=== PATIENT | female | born 1940 | race Caucasian/White ===

== ENCOUNTER 2018-05-29 15:02 | Emergency (ER) | payer MEDICARE, OTHER ==
[~2018-05-29] VITALS: Ht 157.5 cm; Wt 82.0 kg
[~2018-05-29 15:02] MED LIST: ALEN70TA48 PO; ASPI-1071 PO; FURO-149 PO; IPRA3AMP9 INH; IRBE150T51 PO; MONT10TA24 PO; OMEP20TA23 PO; POTA8CAP9 PO; XAL0.005OS EACHEYE
[2018-05-29 15:04] VITALS: BP 188/48
[2018-05-29 15:40] LABS: BASOPHILS % (AUTO) 0.3 % (0-1); EOSINOPHILS # (AUTO) 0.3 X10'3 (0-0.9); EOSINOPHILS % (AUTO) 3.9 % (0-6); HEMATOCRIT 34.3 % (35.0-45.0); HEMOGLOBIN 11.5 g/dl (12.0-16.0); LYMPHOCYTES # (AUTO) 1.5 X10'3 (1.1-4.8); LYMPHOCYTES % (AUTO) 18.4 % (21-51); MEAN CORPUSCULAR HEMOGLOBIN 29.6 PG (27.0-31.0); MEAN CORPUSCULAR HGB CONC 33.7 % (33.0-36.5); MEAN PLATELET VOLUME 9.1 FL (7.4-10.4); MONOCYTES # (AUTO) 0.9 X10'3 (0-0.9); MONOCYTES % (AUTO) 11.6 % (2-12); NEUTROPHILS # (AUTO) 5.3 X10'3 (1.8-7.7); NEUTROPHILS % (AUTO) 65.8 % (42-75); PLATELET COUNT 339 X10'3 (140-440); RED BLOOD COUNT 3.89 X10'6 (4.20-5.60); RED CELL DISTRIBUTION WIDTH 13.9 % (11.5-14.5)
[2018-05-29 15:44] LABS: CLARITY,URINE CLEAR (Clear); COLOR,URINE YELLOW (Yellow); GLUCOSE, URINE NEGATIVE (Neg); KETONES,URINE NEGATIVE (Neg); LEUKOCYTE ESTERASE ,URINE NEGATIVE (Neg); NITRITES, URINE NEGATIVE (Neg); OCCULT BLOOD,URINE NEGATIVE (Neg); PH,URINE 5.5 (4.8-8.0); PROTEIN,URINE NEGATIVE (Neg); UROBILINOGEN,URINE 0.2 E.U/dL (0.2-1.0)
[2018-05-29 15:50] LABS: UA COLLECTION TYPE CLN CATCH MIDSTREAM
[2018-05-29 15:56] LABS: ALANINE AMINOTRANSFERASE 36 U/L (12-78); ALBUMIN 3.1 G/DL (3.4-5.0); ALBUMIN/GLOBULIN RATIO 0.6 (1.1-1.5); ALKALINE PHOSPHATASE 71 IU/L (46-116); ANION GAP 11 (8-16); ASPARTATE AMINO TRANSFERASE 25 U/L (10-37); BILIRUBIN,TOTAL 0.2 MG/DL (0.1-1.0); BLOOD UREA NITROGEN 38 MG/DL (7-18); BUN/CREATININE RATIO 27.9 (6.6-38.0); CALCIUM 9.4 MG/DL (8.5-10.1); CHLORIDE 101 MMOL/L (99-107); CREATININE 1.36 MG/DL (0.40-0.90); GLUCOSE 101 MG/DL (70-104); SODIUM 136 MMOL/L (135-145); TOTAL CARBON DIOXIDE 23.7 MMOL/L (24-32); TOTAL PROTEIN 7.9 G/DL (6.4-8.2); eGFR 38 ML/MIN
[2018-05-29 15:58] LABS: POTASSIUM 4.4 MMOL/L (3.5-5.1)
[2018-05-29] MEDS ORDERED: ONDA4TAB9 PO (16:16)
== END 2018-05-29 17:03 | disposition home or self-care (01) ==
LOC: ER 15:03
DX: I12.9 Hypertensive chronic kidney disease with stage 1 through stage 4 chronic kidney disease, or unspecified chronic kidney disease (principal); N18.9 Chronic kidney disease, unspecified; D64.9 Anemia, unspecified; E78.00 Pure hypercholesterolemia, unspecified; J45.909 Unspecified asthma, uncomplicated; M19.90 Unspecified osteoarthritis, unspecified site; Z86.73 Personal history of transient ischemic attack (TIA), and cerebral infarction without residual deficits; Z90.710 Acquired absence of both cervix and uterus; Z88.8 Allergy status to other drugs, medicaments and biological substances; Z88.6 Allergy status to analgesic agent; Z79.82 Long term (current) use of aspirin; Z79.899 Other long term (current) drug therapy
CPT/HCPCS: 36415; 71045; 80053; 81003; 83605; 85025; 87040; 99285

== ENCOUNTER 2018-11-20 15:13 | Emergency (ER) | payer MEDICARE, OTHER ==
[~2018-11-20] VITALS: Ht 157.5 cm; Wt 85.5 kg
[2018-11-20 16:02] VITALS: BP 191/53
== END 2018-11-20 18:16 | disposition home or self-care (01) ==
LOC: ER 15:14
DX: J02.9 Acute pharyngitis, unspecified (principal); J45.909 Unspecified asthma, uncomplicated; I10 Essential (primary) hypertension; M19.90 Unspecified osteoarthritis, unspecified site; E78.00 Pure hypercholesterolemia, unspecified; Z86.73 Personal history of transient ischemic attack (TIA), and cerebral infarction without residual deficits; Z90.710 Acquired absence of both cervix and uterus; Z79.899 Other long term (current) drug therapy; Z79.82 Long term (current) use of aspirin
CPT/HCPCS: 99281

== ENCOUNTER 2019-11-30 11:57 | Outpatient (CLI) | payer MEDICARE, OTHER ==
[~2019-11-30 11:57] MED LIST changes: -ALEN70TA48 PO; +ALEN70TA60 PO; +POTA8CAP20 PO; -POTA8CAP9 PO
[2019-11-30 13:24] LABS: BASOPHILS # (AUTO) 0.1 X10'3 (0-0.2); BASOPHILS % (AUTO) 0.6 % (0-1); EOSINOPHILS # (AUTO) 0.1 X10'3 (0-0.9); EOSINOPHILS % (AUTO) 0.9 % (0-6); HEMATOCRIT 28.6 % (35.0-45.0); HEMOGLOBIN 9.5 g/dl (12.0-16.0); LYMPHOCYTES # (AUTO) 1.1 X10'3 (1.1-4.8); LYMPHOCYTES % (AUTO) 7.1 % (21-51); MEAN CORPUSCULAR HGB CONC 33.2 g/dL (33.0-36.5); MEAN CORPUSCULAR VOLUME 87.3 FL (78-98); MEAN PLATELET VOLUME 9.4 FL (7.4-10.4); MONOCYTES # (AUTO) 1.1 X10'3 (0-0.9); NEUTROPHILS # (AUTO) 13.4 X10'3 (1.8-7.7); NEUTROPHILS % (AUTO) 84.4 % (42-75); PLATELET COUNT 369 X10'3 (140-440); RED BLOOD COUNT 3.27 X10'6 (4.20-5.60); RED CELL DISTRIBUTION WIDTH 14.1 % (11.5-14.5); WHITE BLOOD COUNT 15.8 X10'3 (4.5-11.0)
[2019-11-30 13:58] LABS: ALANINE AMINOTRANSFERASE 16 U/L (12-78); ALBUMIN 2.6 G/DL (3.4-5.0); ALBUMIN/GLOBULIN RATIO 0.5 (1.1-1.5); ALKALINE PHOSPHATASE 60 IU/L (46-116); ANION GAP 10 (8-16); ASPARTATE AMINO TRANSFERASE 11 U/L (10-37); BILIRUBIN,TOTAL 0.3 MG/DL (0.1-1.0); BLOOD UREA NITROGEN 39 MG/DL (7-18); BUN/CREATININE RATIO 28.1 (6.6-38.0); CALCIUM 9.1 MG/DL (8.5-10.1); CHLORIDE 101 MMOL/L (99-107); CHOL/HDL RATIO 3.1 (0.00-4.99); CHOLESTEROL 139 MG/DL (0-200); CREATININE 1.39 MG/DL (0.40-0.90); GLUCOSE 99 MG/DL (70-104); HDL CHOLESTEROL 45 MG/DL (35-60); LDL CHOLESTEROL 79 MG/DL (50-100); MAGNESIUM 1.9 MG/DL (1.5-2.4); POTASSIUM 4.2 MMOL/L (3.5-5.1); SODIUM 136 MMOL/L (135-145); TOTAL CARBON DIOXIDE 24.8 MMOL/L (24-32); TOTAL PROTEIN 7.6 G/DL (6.4-8.2); TRIGLYCERIDES 82 MG/DL (20-135); eGFR 36 ML/MIN
[2019-12-02 08:10] LABS: VITAMIN D, 25-HYDROXY 27.8 ng/mL (30.0-100.0)
[2019-12-03] MEDS ORDERED: BECL7.3A INH (16:45)
[2019-12-03] MEDS ORDERED: COLC0.6T69 PO (16:45)
[2019-12-03] MEDS ORDERED: FURO-149 PO (16:45)
== END 2019-11-30 23:59 | disposition home or self-care (01) ==
LOC: LAB 11:57
PROVIDERS: ATTEND Internal Medicine
DX: I35.0 Nonrheumatic aortic (valve) stenosis (principal); R53.83 Other fatigue; R10.31 Right lower quadrant pain; R06.02 Shortness of breath; R10.819 Abdominal tenderness, unspecified site; Z79.899 Other long term (current) drug therapy; Z12.11 Encounter for screening for malignant neoplasm of colon
CPT/HCPCS: 36415; 80053; 80061; 82306; 82607; 83735; 83880; 84439; 84443; 84550; 85025; 85651; 87040

== ENCOUNTER 2019-12-15 17:35 | Emergency (ER) | payer MEDICARE, MEDICAID, OTHER ==
[~2019-12-15] VITALS: Ht 157.5 cm; Wt 90.0 kg
[~2019-12-15 17:35] MED LIST changes: -ALEN70TA60 PO; -ASPI-1071 PO; +BECL7.3A INH; +CIPR-230 PO; +COLC0.6T69 PO; +HYDR-4353 PO; -IPRA3AMP9 INH; -OMEP20TA23 PO
[2019-12-15] MEDS ORDERED: ipratropium/albuterol 3ml nebule NEB ONE (18:45)
--- NOTE | 2019-12-15 19:14 | NUR ---
FC PLACED WITH THE ASSISTANCE OF EVER RODARTE.
[2019-12-15 19:24] VITALS: BP 144/51
== END 2019-12-15 19:29 | disposition home or self-care (01) ==
LOC: ER 17:36
DX: T83.038A Leakage of other urinary catheter, initial encounter (principal); R05 Cough; E78.00 Pure hypercholesterolemia, unspecified; I10 Essential (primary) hypertension; J45.909 Unspecified asthma, uncomplicated; M19.90 Unspecified osteoarthritis, unspecified site; Z86.73 Personal history of transient ischemic attack (TIA), and cerebral infarction without residual deficits; Z90.710 Acquired absence of both cervix and uterus; Z88.8 Allergy status to other drugs, medicaments and biological substances; Z88.6 Allergy status to analgesic agent; Z79.899 Other long term (current) drug therapy; Y92.89 Other specified places as the place of occurrence of the external cause
CPT/HCPCS: 51702; 94640; 94760; 99284

== ENCOUNTER 2019-12-26 12:15 | Outpatient (CLI) | payer MEDICARE, MEDICAID, OTHER ==
[~2019-12-26 12:15] MED LIST changes: -MONT10TA24 PO; +MONT10TA26 PO
[2019-12-26 13:34] LABS: BASOPHILS % (AUTO) 0.2 % (0-1); EOSINOPHILS # (AUTO) 0.2 X10'3 (0-0.9); EOSINOPHILS % (AUTO) 1.8 % (0-6); HEMATOCRIT 29.5 % (35.0-45.0); HEMOGLOBIN 9.9 g/dl (12.0-16.0); LYMPHOCYTES # (AUTO) 1.2 X10'3 (1.1-4.8); LYMPHOCYTES % (AUTO) 11.2 % (21-51); MEAN CORPUSCULAR HEMOGLOBIN 28.7 PG (27.0-31.0); MEAN CORPUSCULAR HGB CONC 33.6 g/dL (33.0-36.5); MEAN CORPUSCULAR VOLUME 85.4 FL (78-98); MEAN PLATELET VOLUME 9.1 FL (7.4-10.4); MONOCYTES # (AUTO) 0.9 X10'3 (0-0.9); MONOCYTES % (AUTO) 8.6 % (2-12); NEUTROPHILS # (AUTO) 8.5 X10'3 (1.8-7.7); NEUTROPHILS % (AUTO) 78.2 % (42-75); PLATELET COUNT 496 X10'3 (140-440); RED BLOOD COUNT 3.45 X10'6 (4.20-5.60); RED CELL DISTRIBUTION WIDTH 14.8 % (11.5-14.5); WHITE BLOOD COUNT 10.9 X10'3 (4.5-11.0)
[2019-12-26 13:38] LABS: % IRON SATURATION 10 % (11-46); IRON 20 UG/DL (49-151); TOTAL IRON BINDING CAPACITY 201 UG/DL (259-388)
[2019-12-26 13:58] LABS: ALANINE AMINOTRANSFERASE 16 U/L (12-78); ALBUMIN/GLOBULIN RATIO 0.7 (1.1-1.5); ALKALINE PHOSPHATASE 59 IU/L (46-116); ANION GAP 5 (8-16); ASPARTATE AMINO TRANSFERASE 12 U/L (10-37); BILIRUBIN,TOTAL 0.5 MG/DL (0.1-1.0); BLOOD UREA NITROGEN 52 MG/DL (7-18); BUN/CREATININE RATIO 34.9 (6.6-38.0); CALCIUM 9.3 MG/DL (8.5-10.1); CHLORIDE 96 MMOL/L (99-107); CREATININE 1.49 MG/DL (0.40-0.90); FERRITIN 259 NG/ML (8-252); GLUCOSE 109 MG/DL (70-104); POTASSIUM 4.4 MMOL/L (3.5-5.1); SODIUM 134 MMOL/L (135-145); TOTAL CARBON DIOXIDE 32.7 MMOL/L (24-32); TOTAL PROTEIN 7.5 G/DL (6.4-8.2); eGFR 34 ML/MIN
== END 2019-12-26 23:59 | disposition home or self-care (01) ==
LOC: LAB 12:15
PROVIDERS: ATTEND Internal Medicine
DX: I11.0 Hypertensive heart disease with heart failure (principal); I50.9 Heart failure, unspecified; R53.1 Weakness; Z79.899 Other long term (current) drug therapy
CPT/HCPCS: 36415; 80053; 82728; 83540; 83550; 83880; 84439; 84443; 84550; 85025; 85651

== ENCOUNTER 2020-01-31 15:03 | Inpatient (IN) | payer MEDICARE, OTHER ==
[~2020-01-31] VITALS: Ht 157.5 cm; Wt 78.4 kg
[~2020-01-31 15:03] MED LIST changes: +APIX5TAB3 PO; +ATOR20TA66 PO; -CIPR-230 PO; -FURO-149 PO; +FURO40TA4 PO; -HYDR-4353 PO
--- NOTE | 2020-01-31 15:42 | NUR ---
discussed plan of care with Shanel SAMAYOA, ordered stroke protocol
[2020-01-31] MEDS ORDERED: normal saline 1000ML IV soln IV ONE (16:00)
[2020-01-31 16:14] LABS: BASOPHILS % (AUTO) 0.3 % (0-1); EOSINOPHILS # (AUTO) 0.3 X10'3 (0-0.9); EOSINOPHILS % (AUTO) 2.2 % (0-6); HEMATOCRIT 29.7 % (35.0-45.0); HEMOGLOBIN 9.8 g/dl (12.0-16.0); LYMPHOCYTES # (AUTO) 2.5 X10'3 (1.1-4.8); LYMPHOCYTES % (AUTO) 20.2 % (21-51); MEAN CORPUSCULAR HEMOGLOBIN 27.7 PG (27.0-31.0); MEAN CORPUSCULAR VOLUME 84.1 FL (78-98); MEAN PLATELET VOLUME 9.1 FL (7.4-10.4); MONOCYTES # (AUTO) 0.9 X10'3 (0-0.9); MONOCYTES % (AUTO) 7.1 % (2-12); NEUTROPHILS # (AUTO) 8.7 X10'3 (1.8-7.7); NEUTROPHILS % (AUTO) 70.2 % (42-75); PLATELET COUNT 319 X10'3 (140-440); RED BLOOD COUNT 3.53 X10'6 (4.20-5.60); RED CELL DISTRIBUTION WIDTH 15.5 % (11.5-14.5); WHITE BLOOD COUNT 12.4 X10'3 (4.5-11.0)
[2020-01-31 16:27] LABS: PARTIAL THROMBOPLASTIN TIME 31 SECONDS (22-32)
[2020-01-31 16:40] LABS: ALANINE AMINOTRANSFERASE 19 U/L (12-78); ALBUMIN 3.2 G/DL (3.4-5.0); ALBUMIN/GLOBULIN RATIO 0.7 (1.1-1.5); ALKALINE PHOSPHATASE 66 IU/L (46-116); ANION GAP 15 (8-16); ASPARTATE AMINO TRANSFERASE 18 U/L (10-37); BILIRUBIN,TOTAL 0.4 MG/DL (0.1-1.0); BLOOD UREA NITROGEN 32 MG/DL (7-18); BUN/CREATININE RATIO 21.3 (6.6-38.0); CALCIUM 9.2 MG/DL (8.5-10.1); CHLORIDE 97 MMOL/L (99-107); CREATINE KINASE 57 U/L (26-192); ETHANOL < 0.010 GM/DL (0.0-0.010); GLUCOSE 110 MG/DL (70-104); POTASSIUM 4.2 MMOL/L (3.5-5.1); SODIUM 132 MMOL/L (135-145); TOTAL CARBON DIOXIDE 20.4 MMOL/L (24-32); TOTAL PROTEIN 7.7 G/DL (6.4-8.2); TROPONIN I < 0.04 NG/ML (0.0-0.05); eGFR 33 ML/MIN
[2020-01-31] MEDS ORDERED: vancomycin/NS 1 GM ADD-VANTAGE 250 ML IV ONE (16:40)
[2020-01-31] MEDS ORDERED: piperacillin/tazo 3.375gm/50ml 50 ML IV ONE (16:40)
[2020-01-31 17:24] LABS: CLARITY,URINE CLEAR (Clear); COLOR,URINE YELLOW (Yellow); GLUCOSE, URINE NEGATIVE (Neg); KETONES,URINE NEGATIVE (Neg); LEUKOCYTE ESTERASE ,URINE NEGATIVE (Neg); NITRITES, URINE NEGATIVE (Neg); OCCULT BLOOD,URINE NEGATIVE (Neg); PH,URINE 6.5 (4.8-8.0); PROTEIN,URINE 30 mg/dl (Neg); UROBILINOGEN,URINE 0.2 E.U/dL (0.2-1.0)
[2020-01-31 17:26] LABS: UA COLLECTION TYPE FOLEY CATH
[2020-01-31 17:30] LABS: URINE AMPHETAMINE SCREEN NEGATIVE (Neg); URINE BARBITUATE SCREEN NEGATIVE (Neg); URINE BENZODIAZEPINES SCREEN NEGATIVE (Neg); URINE CANNABINOID SCREEN NEGATIVE (Neg); URINE COCAINE SCREEN NEGATIVE (Neg); URINE METHADONE SCREEN NEGATIVE (Neg); URINE OPIATE SCREEN NEGATIVE (Neg); URINE PHENCYCLIDINE SCREEN NEGATIVE (Neg)
[2020-01-31 17:33] LABS: WBC,URINE 0-4 /HPF (0-4)
[2020-01-31 17:34] LABS: BACTERIA,URINE NONE SEEN /HPF (Neg); MUCUS STRANDS FEW /LPF (Neg); RBC,URINE 0-2 /HPF (0-2); RENAL CELLS, URINE FEW /HPF; SQUAMOUS EPITHELIAL CELL,UR FEW /LPF (FEW)
[2020-01-31 17:35] LABS: HYALINE CASTS 0-3 /LPF (NEGATIVE)
[2020-01-31] MEDS ORDERED: ondansetron/PF 4mg/2ml inj IV ONE (17:45)
[2020-01-31] MEDS ORDERED: ATOR40TA72 PO (17:52)
[2020-01-31] MEDS ORDERED: FLUT16SP26 (17:52)
[2020-01-31 18:00] LABS: ABG BASE EXCESS -3.5 mmol/L (-2.0-3.0); ABG HCO3 20.6 mmol/L (22.0-26.0); ABG OXYGEN SATURATION 95.6 % (95-98); ABG PCO2 (T) 33.1 mmHg (35.0-45.0); ABG PH (T) 7.412 (7.350-7.450); ABG PO2 (T) 83.9 mmHg (83-108); ALLEN'S TEST POSITIVE; FCOHb 0.3 % (0.5-1.5); FMetHb 0.3 % (0.3-1.12); TOTAL HEMOGLOBIN 8.8 G/dl (12.0-16.0)
[2020-01-31] MEDS ORDERED: potassium CL 10mEq/100ml bag 100 ML IV PRN ×2 (20:15)
[2020-01-31] MEDS ORDERED: mag hydrox/Alum hydrox/simeth 30ml oral suspension PO PRN (20:15)
[2020-01-31] MEDS ORDERED: magnesium hydroxide 30ml (MOM) UD suspension PO PRN (20:15)
[2020-01-31] MEDS ORDERED: acetaminophen 325mg tablet PO PRN (20:15)
[2020-01-31] MEDS ORDERED: colchicine 0.6mg tablet PO PRN (20:20)
[2020-01-31] MEDS: latanoprost 0.005% 2.5ml ophthalmic drops EACHEYE SCH (22:16)
[2020-01-31] MEDS: budesonide 0.5mg/2ml UD nebule IH SCH (22:52)
[2020-01-31] MEDS ORDERED: LORazepam 2 mg/ml vial ONE (23:06)
--- NOTE | 2020-01-31 23:09 | NUR ---
At the end of the SVN tx patient startedmto have a seizure. Held head stable and put a yankuer in mouth as a bite block Called for help. Patient came out of seizure without any truma to mouth or tounge. Place on nc 2l/m to help stablize patient
[2020-01-31] MEDS ORDERED: levetiracetam inj 1,000 MG in normal saline 100ml IV soln 90 ML IV STA (23:24)
[2020-01-31] MEDS ORDERED: LORazepam 2 mg/ml vial IV ONE (23:25)
[2020-01-31] MEDS ORDERED: levetiracetam inj 1,000 MG in normal saline 100ml IV soln 90 ML IV ONE (23:25)
[2020-01-31] MEDS ORDERED: levetiracetam-NS 1000mg/100ml 100 ML IV ONE (23:30)
--- NOTE | 2020-02-01 00:10 | NUR ---
Received report from EVER Dinero. All questions answered. Room ready, awaiting patient arrival.
--- NOTE | 2020-02-01 00:30 | NUR ---
PATIENT ARRIVED TO UNIT VIA GURNEY FROM ER. TRANSFERRED TO BED WITH SLIDER BOARD. ORIENTED TO ROOM AND UNIT. BLL, CALL LIGHT WITHIN REACH; SEIZURE PADS ON RAILS. PHYSICAL ASSESSMENT COMPLETED CHARTED. VSS. WILL CONTINUE TO MONITOR. PATIENT'S SON ART IS AT THE BEDSIDE.
[2020-02-01 00:40] VITALS: BP 153/55
[2020-02-01] MEDS ORDERED: LORazepam 2 mg/ml vial IV PRN (01:55)
[2020-02-01 06:00] VITALS: BP 143/42
[2020-02-01 06:06] LABS: BASOPHILS % (AUTO) 0.4 % (0-1); EOSINOPHILS # (AUTO) 0.1 X10'3 (0-0.9); EOSINOPHILS % (AUTO) 1.6 % (0-6); HEMATOCRIT 22.5 % (35.0-45.0); HEMOGLOBIN 7.7 g/dl (12.0-16.0); LYMPHOCYTES # (AUTO) 1.4 X10'3 (1.1-4.8); LYMPHOCYTES % (AUTO) 15.5 % (21-51); MEAN CORPUSCULAR HEMOGLOBIN 28.7 PG (27.0-31.0); MEAN CORPUSCULAR HGB CONC 34.3 g/dL (33.0-36.5); MEAN CORPUSCULAR VOLUME 83.6 FL (78-98); MEAN PLATELET VOLUME 9.1 FL (7.4-10.4); MONOCYTES # (AUTO) 0.7 X10'3 (0-0.9); MONOCYTES % (AUTO) 7.9 % (2-12); NEUTROPHILS # (AUTO) 6.7 X10'3 (1.8-7.7); NEUTROPHILS % (AUTO) 74.6 % (42-75); PLATELET COUNT 208 X10'3 (140-440); RED BLOOD COUNT 2.69 X10'6 (4.20-5.60); RED CELL DISTRIBUTION WIDTH 14.9 % (11.5-14.5); WHITE BLOOD COUNT 8.9 X10'3 (4.5-11.0)
[2020-02-01 06:30] LABS: ALANINE AMINOTRANSFERASE 14 U/L (12-78); ALBUMIN 2.4 G/DL (3.4-5.0); ALBUMIN/GLOBULIN RATIO 0.7 (1.1-1.5); ALKALINE PHOSPHATASE 50 IU/L (46-116); ANION GAP 6 (8-16); ASPARTATE AMINO TRANSFERASE 19 U/L (10-37); BILIRUBIN,TOTAL 0.3 MG/DL (0.1-1.0); BLOOD UREA NITROGEN 24 MG/DL (7-18); BUN/CREATININE RATIO 22.4 (6.6-38.0); CALCIUM 8.1 MG/DL (8.5-10.1); CHLORIDE 105 MMOL/L (99-107); CREATININE 1.07 MG/DL (0.40-0.90); GLUCOSE 92 MG/DL (70-104); SODIUM 136 MMOL/L (135-145); TOTAL CARBON DIOXIDE 24.7 MMOL/L (24-32); eGFR 49 ML/MIN
--- NOTE | 2020-02-01 06:45 | NUR ---
Patient in room MED 312. I have received report from EVER Loyola and had the opportunity to ask questions and assume patient care.
[2020-02-01 07:49] LABS: MAGNESIUM 1.7 MG/DL (1.5-2.4)
[2020-02-01] MEDS: budesonide 0.5mg/2ml UD nebule IH SCH ×2 (07:53→19:35)
[2020-02-01] MEDS ORDERED: budesonide 0.5mg/2ml UD nebule IH SCH (08:00)
[2020-02-01] MEDS: fluticasone nasal spray 16GM bottle NS SCH (08:00)
[2020-02-01] MEDS ORDERED: furosemide 40mg tablet PO SCH (08:00)
[2020-02-01] MEDS: K and/or MAG REPLACEMENT MC SCH ×2 (08:00→20:00)
[2020-02-01] MEDS ORDERED: levetiracetam inj 1,000 MG in normal saline 100ml IV soln 90 ML IV SCH (08:00)
[2020-02-01] MEDS: apixaban 2.5mg tablet PO SCH ×2 (08:10→20:39)
[2020-02-01] MEDS: losartan 50mg tablet PO SCH (08:10)
[2020-02-01] MEDS: atorvastatin 20mg tablet PO SCH (08:10)
[2020-02-01] MEDS: montelukast 10mg tablet PO SCH (08:11)
[2020-02-01] MEDS: levetiracetam-NS 1000mg/100ml 100 ML IV SCH ×2 (08:11→20:33)
[2020-02-01] MEDS: potassium chloride 8mEq ER tablet PO SCH ×2 (08:11→20:39)
--- NOTE | 2020-02-01 08:43 | NUR ---
Spoke with blood or blood bank technician on telephone; due to scheduling, EEG will take place for this patient this afternoon.
[2020-02-01 11:00] VITALS: BP 138/40
--- NOTE | 2020-02-01 12:28 | NUR ---
Patient to MRI
[2020-02-01 12:44] LABS: % IRON SATURATION 17 % (11-46); IRON 34 UG/DL (49-151); TOTAL IRON BINDING CAPACITY 195 UG/DL (259-388)
--- NOTE | 2020-02-01 13:40 | NUR ---
PAGER ID: [phone] MESSAGE: [phone] Patient requesting PRN breathing tx reports SOB. RR 20, 95% on RA, mild wheezing audible. Currently only scheduled resp tx ordered, next is at 1999. Thanks! Jena ACCE 1920
--- NOTE | 2020-02-01 13:44 | NUR ---
PAGED RESPIRATORY: " [phone] REQUESTING TREYN CHARISSE BURROUGHS. THANKS!"
[2020-02-01] MEDS: ipratropium/albuterol 3ml nebule NEB PRN ×2 (13:58→19:35)
[2020-02-01 14:01] LABS: HEMATOCRIT 26.7 % (35.0-45.0); HEMOGLOBIN 9.1 g/dl (12.0-16.0); MEAN CORPUSCULAR HEMOGLOBIN 28.3 PG (27.0-31.0); MEAN CORPUSCULAR VOLUME 83.3 FL (78-98); MEAN PLATELET VOLUME 9.5 FL (7.4-10.4); PLATELET COUNT 244 X10'3 (140-440); RED CELL DISTRIBUTION WIDTH 15.5 % (11.5-14.5); WHITE BLOOD COUNT 9.3 X10'3 (4.5-11.0)
--- NOTE | 2020-02-01 14:36 | NUR ---
LINE OUT WORKER AND STROKE RN AT BEDSIDE FOR NEURO CONSULT. PER STROKE RN, NEUROLOGIST WILL SPEAK WITH DR. CALDERA AND ADJUST MEDICATIONS NEEDED.
[2020-02-01 15:00] VITALS: BP 132/47
[2020-02-01 18:00] VITALS: BP 134/37
--- NOTE | 2020-02-01 18:12 | NUR ---
Problems reprioritized. Patient report given, questions answered & plan of care reviewed with EVER Loera.
--- NOTE | 2020-02-01 18:44 | NUR ---
received report from EVER Bella
--- NOTE | 2020-02-01 20:49 | NUR ---
SENT MESSAGE TO PHARMACY "PT IS MISSING THIS MED, PLEASE FILL ORDER, THANK YOU."
[2020-02-01] MEDS: latanoprost 0.005% 2.5ml ophthalmic drops EACHEYE SCH (21:00)
--- NOTE | 2020-02-01 21:56 | NUR ---
I sent page to Case Management: "Pt Miracle room 312: Pt's son Art who is her current POA is requesting to talk to case management about his mother's care, he has a few questions. His number is ."
[2020-02-01 22:00] VITALS: BP 109/48
[2020-02-02 01:40] VITALS: BP 109/43
[2020-02-02] MEDS: acetaminophen 325mg tablet PO PRN ×3 (05:34→13:44)
--- NOTE | 2020-02-02 05:45 | NUR ---
spoke with Dr. Herrera in regards to patient's pain. Patient requested tylenol. Received new orders. Will continue to monitor
[2020-02-02 06:14] LABS: BASOPHILS # (AUTO) 0.1 X10'3 (0-0.2); BASOPHILS % (AUTO) 0.7 % (0-1); EOSINOPHILS # (AUTO) 0.3 X10'3 (0-0.9); EOSINOPHILS % (AUTO) 3.5 % (0-6); HEMATOCRIT 23.9 % (35.0-45.0); HEMOGLOBIN 8.3 g/dl (12.0-16.0); LYMPHOCYTES % (AUTO) 13.6 % (21-51); MEAN CORPUSCULAR HEMOGLOBIN 28.9 PG (27.0-31.0); MEAN CORPUSCULAR HGB CONC 34.9 g/dL (33.0-36.5); MEAN CORPUSCULAR VOLUME 82.7 FL (78-98); MEAN PLATELET VOLUME 9.2 FL (7.4-10.4); MONOCYTES # (AUTO) 0.7 X10'3 (0-0.9); MONOCYTES % (AUTO) 9.4 % (2-12); NEUTROPHILS # (AUTO) 5.6 X10'3 (1.8-7.7); NEUTROPHILS % (AUTO) 72.8 % (42-75); PLATELET COUNT 210 X10'3 (140-440); RED BLOOD COUNT 2.89 X10'6 (4.20-5.60); RED CELL DISTRIBUTION WIDTH 15.4 % (11.5-14.5); WHITE BLOOD COUNT 7.7 X10'3 (4.5-11.0)
[2020-02-02 06:35] LABS: ALANINE AMINOTRANSFERASE 18 U/L (12-78); ALBUMIN 2.7 G/DL (3.4-5.0); ALBUMIN/GLOBULIN RATIO 0.7 (1.1-1.5); ALKALINE PHOSPHATASE 56 IU/L (46-116); ANION GAP 9 (8-16); ASPARTATE AMINO TRANSFERASE 23 U/L (10-37); BILIRUBIN,TOTAL 0.3 MG/DL (0.1-1.0); BLOOD UREA NITROGEN 22 MG/DL (7-18); BUN/CREATININE RATIO 16.8 (6.6-38.0); CALCIUM 8.7 MG/DL (8.5-10.1); CHLORIDE 104 MMOL/L (99-107); CREATININE 1.31 MG/DL (0.40-0.90); GLUCOSE 93 MG/DL (70-104); POTASSIUM 3.8 MMOL/L (3.5-5.1); SODIUM 140 MMOL/L (135-145); TOTAL CARBON DIOXIDE 27.4 MMOL/L (24-32); TOTAL PROTEIN 6.5 G/DL (6.4-8.2); eGFR 39 ML/MIN
--- NOTE | 2020-02-02 06:46 | NUR ---
Gave report to EVER Smith
--- NOTE | 2020-02-02 06:53 | NUR ---
Patient in room MED 312. I have received report from EVER Loera and had the opportunity to ask questions and assume patient care.
[2020-02-02] MEDS: K and/or MAG REPLACEMENT MC SCH ×2 (07:04→20:00)
[2020-02-02] MEDS: potassium chloride 8mEq ER tablet PO SCH ×2 (07:29→20:29)
[2020-02-02] MEDS: atorvastatin 20mg tablet PO SCH (07:33)
[2020-02-02] MEDS: montelukast 10mg tablet PO SCH (07:33)
[2020-02-02] MEDS: levetiracetam-NS 1000mg/100ml 100 ML IV SCH (07:33)
[2020-02-02] MEDS: apixaban 2.5mg tablet PO SCH ×2 (07:33→20:29)
[2020-02-02 07:40] VITALS: BP 162/37
[2020-02-02] MEDS: ipratropium/albuterol 3ml nebule NEB PRN ×2 (07:44→20:48)
[2020-02-02] MEDS: budesonide 0.5mg/2ml UD nebule IH SCH ×2 (07:45→20:48)
[2020-02-02] MEDS ORDERED: furosemide 40mg tablet PO SCH (08:00)
[2020-02-02] MEDS: fluticasone nasal spray 16GM bottle NS SCH (08:54)
--- NOTE | 2020-02-02 09:45 | NUR ---
Patient in room MED 312. I have received report from Luis and had the opportunity to ask questions and assume patient care.
--- NOTE | 2020-02-02 10:30 | NUR ---
Pt arrived on the floor, provided comfort measures, tucked in
[2020-02-02 10:45] VITALS: BP 139/36
[2020-02-02 18:00] VITALS: BP 173/44
--- NOTE | 2020-02-02 18:10 | NUR ---
Patient in room ORTHO 4012. I have received report from EVER An and had the opportunity to ask questions and assume patient care.
--- NOTE | 2020-02-02 18:27 | NUR ---
Problems reprioritized. Patient report given, questions answered & plan of care reviewed with Kerry.
[2020-02-02] MEDS: latanoprost 0.005% 2.5ml ophthalmic drops EACHEYE SCH (20:29)
[2020-02-02] MEDS: levetiracetam 250mg tablet PO SCH (20:29)
[2020-02-02] MEDS: traMADol 50MG tablet PO PRN (20:29)
[2020-02-02 22:00] VITALS: BP 177/55
[2020-02-03] VITALS (9 sets, daily range): BP systolic 139–182; BP diastolic 44–77
--- NOTE | 2020-02-03 06:10 | NUR ---
Problems reprioritized. Patient report given, questions answered & plan of care reviewed with EVER An.
--- NOTE | 2020-02-03 06:10 | NUR ---
Patient in room ORTHO 4012. I have received report from Kerry and had the opportunity to ask questions and assume patient care.
[2020-02-03 07:38] LABS: BASOPHILS % (AUTO) 0.5 % (0-1); EOSINOPHILS # (AUTO) 0.4 X10'3 (0-0.9); EOSINOPHILS % (AUTO) 4.6 % (0-6); HEMATOCRIT 26.6 % (35.0-45.0); LYMPHOCYTES % (AUTO) 10.5 % (21-51); MEAN CORPUSCULAR HEMOGLOBIN 27.9 PG (27.0-31.0); MEAN CORPUSCULAR HGB CONC 33.7 g/dL (33.0-36.5); MEAN CORPUSCULAR VOLUME 82.6 FL (78-98); MEAN PLATELET VOLUME 9.5 FL (7.4-10.4); MONOCYTES # (AUTO) 0.6 X10'3 (0-0.9); MONOCYTES % (AUTO) 6.1 % (2-12); NEUTROPHILS # (AUTO) 7.1 X10'3 (1.8-7.7); NEUTROPHILS % (AUTO) 78.3 % (42-75); PLATELET COUNT 236 X10'3 (140-440); RED BLOOD COUNT 3.22 X10'6 (4.20-5.60); RED CELL DISTRIBUTION WIDTH 15.3 % (11.5-14.5); WHITE BLOOD COUNT 9.1 X10'3 (4.5-11.0)
[2020-02-03 07:59] LABS: ALANINE AMINOTRANSFERASE 21 U/L (12-78); ALBUMIN 2.9 G/DL (3.4-5.0); ALBUMIN/GLOBULIN RATIO 0.7 (1.1-1.5); ALKALINE PHOSPHATASE 60 IU/L (46-116); ANION GAP 8 (8-16); ASPARTATE AMINO TRANSFERASE 24 U/L (10-37); BILIRUBIN,TOTAL 0.3 MG/DL (0.1-1.0); BLOOD UREA NITROGEN 18 MG/DL (7-18); BUN/CREATININE RATIO 16.8 (6.6-38.0); CHLORIDE 102 MMOL/L (99-107); CREATININE 1.07 MG/DL (0.40-0.90); GLUCOSE 92 MG/DL (70-104); POTASSIUM 4.1 MMOL/L (3.5-5.1); SODIUM 137 MMOL/L (135-145); TOTAL CARBON DIOXIDE 27.4 MMOL/L (24-32); TOTAL PROTEIN 7.1 G/DL (6.4-8.2); eGFR 49 ML/MIN
[2020-02-03] MEDS: K and/or MAG REPLACEMENT MC SCH ×2 (08:00→20:00)
[2020-02-03] MEDS: ondansetron/PF 4mg/2ml inj IV PRN (08:02)
[2020-02-03] MEDS: budesonide 0.5mg/2ml UD nebule IH SCH ×2 (08:27→19:37)
[2020-02-03] MEDS: ipratropium/albuterol 3ml nebule NEB PRN ×2 (08:27→19:37)
[2020-02-03] MEDS: fluticasone nasal spray 16GM bottle NS SCH (09:05)
[2020-02-03] MEDS: potassium chloride 8mEq ER tablet PO SCH ×2 (09:08→20:03)
[2020-02-03] MEDS: apixaban 2.5mg tablet PO SCH ×2 (09:08→20:02)
[2020-02-03] MEDS: levetiracetam 250mg tablet PO SCH ×2 (09:08→20:02)
[2020-02-03] MEDS: losartan 50mg tablet PO SCH (09:08)
[2020-02-03] MEDS: montelukast 10mg tablet PO SCH (09:09)
[2020-02-03] MEDS: atorvastatin 20mg tablet PO SCH (09:09)
--- NOTE | 2020-02-03 15:16 | NUR ---
Problems reprioritized. Patient report given, questions answered & plan of care reviewed with Val.
[2020-02-03 15:44] LABS: LDL CHOLESTEROL 76 MG/DL (50-100)
--- NOTE | 2020-02-03 18:18 | NUR ---
Problems reprioritized. Patient report given, questions answered & plan of care reviewed with Kerry CURTIS.
[2020-02-03] MEDS: traMADol 50MG tablet PO PRN (19:48)
[2020-02-03] MEDS: latanoprost 0.005% 2.5ml ophthalmic drops EACHEYE SCH (20:49)
[2020-02-04] VITALS: BP 127/34
[2020-02-04] MEDS: traMADol 50MG tablet PO PRN ×3 (01:41→15:30)
[2020-02-04 04:00] VITALS: BP 153/33
[2020-02-04 06:00] VITALS: BP 153/33
--- NOTE | 2020-02-04 06:19 | NUR ---
Problems reprioritized. Patient report given, questions answered & plan of care reviewed with EVER Dias.
--- NOTE | 2020-02-04 06:30 | NUR ---
Received report from Kerry CURTIS
[2020-02-04 06:56] LABS: BASOPHILS # (AUTO) 0.1 X10'3 (0-0.2); BASOPHILS % (AUTO) 0.8 % (0-1); EOSINOPHILS # (AUTO) 0.3 X10'3 (0-0.9); EOSINOPHILS % (AUTO) 3.9 % (0-6); HEMATOCRIT 24.6 % (35.0-45.0); HEMOGLOBIN 8.4 g/dl (12.0-16.0); LYMPHOCYTES # (AUTO) 1.5 X10'3 (1.1-4.8); LYMPHOCYTES % (AUTO) 20.3 % (21-51); MEAN CORPUSCULAR HEMOGLOBIN 28.6 PG (27.0-31.0); MEAN CORPUSCULAR HGB CONC 34.1 g/dL (33.0-36.5); MEAN CORPUSCULAR VOLUME 83.7 FL (78-98); MEAN PLATELET VOLUME 9.3 FL (7.4-10.4); MONOCYTES # (AUTO) 0.7 X10'3 (0-0.9); MONOCYTES % (AUTO) 9.7 % (2-12); NEUTROPHILS # (AUTO) 4.9 X10'3 (1.8-7.7); NEUTROPHILS % (AUTO) 65.3 % (42-75); PLATELET COUNT 230 X10'3 (140-440); RED BLOOD COUNT 2.94 X10'6 (4.20-5.60); RED CELL DISTRIBUTION WIDTH 15.6 % (11.5-14.5); WHITE BLOOD COUNT 7.5 X10'3 (4.5-11.0)
[2020-02-04 07:13] LABS: ALANINE AMINOTRANSFERASE 16 U/L (12-78); ALBUMIN 2.5 G/DL (3.4-5.0); ALBUMIN/GLOBULIN RATIO 0.6 (1.1-1.5); ALKALINE PHOSPHATASE 51 IU/L (46-116); ANION GAP 6 (8-16); ASPARTATE AMINO TRANSFERASE 17 U/L (10-37); BILIRUBIN,TOTAL 0.3 MG/DL (0.1-1.0); BLOOD UREA NITROGEN 19 MG/DL (7-18); BUN/CREATININE RATIO 15.4 (6.6-38.0); CALCIUM 8.5 MG/DL (8.5-10.1); CHLORIDE 99 MMOL/L (99-107); CREATININE 1.23 MG/DL (0.40-0.90); GLUCOSE 88 MG/DL (70-104); POTASSIUM 4.4 MMOL/L (3.5-5.1); SODIUM 133 MMOL/L (135-145); TOTAL CARBON DIOXIDE 27.6 MMOL/L (24-32); TOTAL PROTEIN 6.4 G/DL (6.4-8.2); eGFR 42 ML/MIN
[2020-02-04] MEDS: ipratropium/albuterol 3ml nebule NEB PRN ×2 (07:52→18:41)
[2020-02-04] MEDS: budesonide 0.5mg/2ml UD nebule IH SCH ×2 (07:52→18:41)
[2020-02-04] MEDS: K and/or MAG REPLACEMENT MC SCH ×2 (08:00→19:14)
[2020-02-04] MEDS: apixaban 2.5mg tablet PO SCH ×2 (08:46→19:48)
[2020-02-04] MEDS: levetiracetam 250mg tablet PO SCH ×2 (08:47→19:48)
[2020-02-04] MEDS: atorvastatin 20mg tablet PO SCH (08:47)
[2020-02-04] MEDS: montelukast 10mg tablet PO SCH (08:48)
[2020-02-04] MEDS: potassium chloride 8mEq ER tablet PO SCH ×2 (08:49→19:55)
[2020-02-04] MEDS: losartan 50mg tablet PO SCH (08:50)
[2020-02-04] MEDS: ondansetron/PF 4mg/2ml inj IV PRN (08:51)
[2020-02-04] MEDS: fluticasone nasal spray 16GM bottle NS SCH (09:01)
[2020-02-04 10:00] VITALS: BP 142/41
[2020-02-04] MEDS: acetaminophen 325mg tablet PO PRN ×2 (13:40→19:48)
--- NOTE | 2020-02-04 13:40 | NUR ---
[facility] not scanning tylenol into system, checked med prior to admin
[2020-02-04 18:00] VITALS: BP 154/43
--- NOTE | 2020-02-04 18:42 | NUR ---
GAVE REPORT TO MOODY CURTIS
--- NOTE | 2020-02-04 18:52 | NUR ---
pt requested a breathing tx at this time, rec'd 2000 dose now.
[2020-02-04] MEDS: latanoprost 0.005% 2.5ml ophthalmic drops EACHEYE SCH (19:53)
[2020-02-04 22:00] VITALS: BP 153/35
[2020-02-05 05:58] LABS: BASOPHILS % (AUTO) 0.2 % (0-1); EOSINOPHILS # (AUTO) 0.2 X10'3 (0-0.9); EOSINOPHILS % (AUTO) 2.3 % (0-6); HEMATOCRIT 25.4 % (35.0-45.0); HEMOGLOBIN 8.6 g/dl (12.0-16.0); LYMPHOCYTES # (AUTO) 0.9 X10'3 (1.1-4.8); MEAN CORPUSCULAR HEMOGLOBIN 28.2 PG (27.0-31.0); MEAN CORPUSCULAR VOLUME 82.7 FL (78-98); MEAN PLATELET VOLUME 9.4 FL (7.4-10.4); MONOCYTES # (AUTO) 0.6 X10'3 (0-0.9); MONOCYTES % (AUTO) 7.5 % (2-12); PLATELET COUNT 236 X10'3 (140-440); RED BLOOD COUNT 3.07 X10'6 (4.20-5.60); RED CELL DISTRIBUTION WIDTH 15.1 % (11.5-14.5); WHITE BLOOD COUNT 7.7 X10'3 (4.5-11.0)
[2020-02-05 06:00] VITALS: BP 145/36
[2020-02-05 06:15] LABS: ALANINE AMINOTRANSFERASE 16 U/L (12-78); ALBUMIN 2.7 G/DL (3.4-5.0); ALBUMIN/GLOBULIN RATIO 0.7 (1.1-1.5); ALKALINE PHOSPHATASE 52 IU/L (46-116); ANION GAP 6 (8-16); ASPARTATE AMINO TRANSFERASE 17 U/L (10-37); BILIRUBIN,TOTAL 0.3 MG/DL (0.1-1.0); BLOOD UREA NITROGEN 27 MG/DL (7-18); BUN/CREATININE RATIO 18.1 (6.6-38.0); CHLORIDE 98 MMOL/L (99-107); CREATININE 1.49 MG/DL (0.40-0.90); GLUCOSE 97 MG/DL (70-104); POTASSIUM 4.8 MMOL/L (3.5-5.1); SODIUM 132 MMOL/L (135-145); TOTAL CARBON DIOXIDE 28.4 MMOL/L (24-32); TOTAL PROTEIN 6.7 G/DL (6.4-8.2); eGFR 34 ML/MIN
--- NOTE | 2020-02-05 06:25 | NUR ---
REPORT GIVEN TO EVER GARCIA.
--- NOTE | 2020-02-05 06:26 | NUR ---
REPORT GIVEN TO EVER GARCIA.
--- NOTE | 2020-02-05 06:40 | NUR ---
Patient in room ORTHO 4012B. I have received report from EVER URIOSTEGUI and had the opportunity to ask questions and assume patient care.
[2020-02-05] MEDS: K and/or MAG REPLACEMENT MC SCH (08:00)
[2020-02-05] MEDS: fluticasone nasal spray 16GM bottle NS SCH (08:47)
[2020-02-05] MEDS: apixaban 2.5mg tablet PO SCH (08:47)
[2020-02-05] MEDS: losartan 50mg tablet PO SCH (08:47)
[2020-02-05] MEDS: levetiracetam 250mg tablet PO SCH (08:48)
[2020-02-05] MEDS: potassium chloride 8mEq ER tablet PO SCH (08:48)
[2020-02-05] MEDS: ondansetron/PF 4mg/2ml inj IV PRN (08:49)
[2020-02-05] MEDS: montelukast 10mg tablet PO SCH (08:49)
[2020-02-05] MEDS: atorvastatin 20mg tablet PO SCH (08:49)
[2020-02-05] MEDS: budesonide 0.5mg/2ml UD nebule IH SCH (08:53)
[2020-02-05 10:00] VITALS: BP 154/37
[2020-02-05 12:56] VITALS: BP 158/40
[2020-02-05] MEDS: traMADol 50MG tablet PO PRN (13:01)
--- NOTE | 2020-02-05 15:39 | NUR ---
called report to [facility].
--- NOTE | 2020-02-05 16:16 | NUR ---
PT DC, MIRIAN CLEMONS FOR TRANSFER TO [facility]. IV REMOVED WITH NO PROBLEMS. PT ALERT AND STABLE FOR DC.
== END 2020-02-05 15:30 | DRG 100 ==
LOC: ER 15:04 → ED HOLD 20:14 → CMPBEDREQ 02-01 00:24 → MED 3N 02-01 00:30 → ORTHO 4S 02-02 10:21
PROVIDERS: ADMIT Internal Medicine; ATTEND Family Medicine
PROC: 4A10X4Z Monitoring of Central Nervous Electrical Activity, External Approach (ICD-10-PCS; principal; 2020-02-04)
DX: R56.9 Unspecified convulsions (principal); N17.0 Acute kidney failure with tubular necrosis; E87.2 Acidosis; I50.30 Unspecified diastolic (congestive) heart failure; I13.0 Hypertensive heart and chronic kidney disease with heart failure and stage 1 through stage 4 chronic kidney disease, or unspecified chronic kidney disease; D64.9 Anemia, unspecified; N18.3 Chronic kidney disease, stage 3 (moderate); M19.90 Unspecified osteoarthritis, unspecified site; E78.00 Pure hypercholesterolemia, unspecified; E78.5 Hyperlipidemia, unspecified; I08.0 Rheumatic disorders of both mitral and aortic valves; J45.909 Unspecified asthma, uncomplicated; Z86.73 Personal history of transient ischemic attack (TIA), and cerebral infarction without residual deficits; Z90.710 Acquired absence of both cervix and uterus; Z88.8 Allergy status to other drugs, medicaments and biological substances; Z98.51 Tubal ligation status; Z79.899 Other long term (current) drug therapy
CPT/HCPCS: 36415; 36600; 70450; 70544; 70551; 71045; 80053; 80305; 80320; 81001; 82550; 82803; 83540; 83550; 83605; 83721; 83735; 84145; 84484; 85018; 85025; 85027; 85610; 85730; 87040; 87081; 87502; 87503; 93005; 94640; 94760; 95816; 96365; 97110; 97112; 97116; 97162; 97530; 99285; G0378; J1953; J2060; J2405; J2543; J3370; J7030; J7626

== ENCOUNTER 2020-05-15 10:07 | Day surgery (SDC) | payer MEDICARE, OTHER ==
[2020-05-14 15:08] LABS: BASOPHILS # (AUTO) 0.1 X10'3 (0-0.2); EOSINOPHILS # (AUTO) 0.2 X10'3 (0-0.9); EOSINOPHILS % (AUTO) 2.5 % (0-6); HEMATOCRIT 26.2 % (35.0-45.0); HEMOGLOBIN 8.9 g/dl (12.0-16.0); LYMPHOCYTES % (AUTO) 10.7 % (21-51); MEAN CORPUSCULAR HEMOGLOBIN 29.7 PG (27.0-31.0); MEAN CORPUSCULAR HGB CONC 33.9 g/dL (33.0-36.5); MEAN CORPUSCULAR VOLUME 87.6 FL (78-98); MEAN PLATELET VOLUME 9.7 FL (7.4-10.4); MONOCYTES # (AUTO) 0.9 X10'3 (0-0.9); MONOCYTES % (AUTO) 9.9 % (2-12); NEUTROPHILS % (AUTO) 75.9 % (42-75); PLATELET COUNT 224 X10'3 (140-440); RED BLOOD COUNT 2.99 X10'6 (4.20-5.60); RED CELL DISTRIBUTION WIDTH 15.9 % (11.5-14.5); WHITE BLOOD COUNT 9.2 X10'3 (4.5-11.0)
[2020-05-14 15:25] LABS: ALBUMIN 3.2 G/DL (3.4-5.0); ANION GAP 9 (8-16); BLOOD UREA NITROGEN 55 MG/DL (7-18); BUN/CREATININE RATIO 28.4 (6.6-38.0); CALCIUM 8.7 MG/DL (8.5-10.1); CHLORIDE 101 MMOL/L (99-107); CREATININE 1.94 MG/DL (0.40-0.90); GLUCOSE 101 MG/DL (70-104); POTASSIUM 4.8 MMOL/L (3.5-5.1); SODIUM 138 MMOL/L (135-145); TOTAL CARBON DIOXIDE 28.2 MMOL/L (24-32); eGFR 25 ML/MIN
[2020-05-14 15:37] LABS: PARTIAL THROMBOPLASTIN TIME 21 SECONDS (22-32)
[2020-05-15] VITALS (14 sets, daily range): BP systolic 148–187; BP diastolic 58–86
[~2020-05-15] VITALS: Ht 157.5 cm; Wt 74.9 kg
[~2020-05-15 10:07] MED LIST changes: -APIX5TAB3 PO; -ATOR20TA66 PO; +ATOR40TA72 PO; +CEFD300C3 PO; -COLC0.6T69 PO; +DOCU-267 PO; -IRBE150T51 PO; +LAMO25TA5 PO; +LEVE500T PO; +LOSA100T57 PO; +ONDA4TAB12 PO; +PANT40TA4 PO; -POTA8CAP20 PO
[2020-05-15] MEDS ORDERED: sodium bicarbonate (8.4%) inj. 150 ML in dextrose 5%-water 1,000 ML IV ONE (10:30)
[2020-05-15] MEDS ORDERED: diphenhydrAMINE 25mg capsule PO PRN (10:30)
[2020-05-15] MEDS ORDERED: acetylcysteine 200 MG/ml 4ml vial PO SCH (10:30)
[2020-05-15] MEDS ORDERED: LORazepam 0.5 MG tablet PO PRN (10:30)
[2020-05-15] MEDS ORDERED: PANT40TA4 PO (10:47)
[2020-05-15] MEDS ORDERED: POTA10TA36 PO (10:52)
[2020-05-15] MEDS ORDERED: HYDR-3972 PO (10:52)
[2020-05-15] MEDS ORDERED: ALB0.5UD IH (10:52)
[2020-05-15] MEDS ORDERED: LIDOcaine 1% (10mg/ml)w/preservative injection 20ml MDV ONE (11:39)
[2020-05-15] MEDS ORDERED: iohexol 350MG/ML 100ml bottle IV ONE (11:39)
[2020-05-15] MEDS ORDERED: verapamil 2.5 mg/ml inj IV ONE (11:39)
[2020-05-15] MEDS ORDERED: fentaNYL/PF 50MCG/1 ML 2ML syringe ONE (11:39)
[2020-05-15] MEDS ORDERED: iohexol 350 MG/ML 50ML vial IV ONE ×2 (11:39→12:53)
[2020-05-15] MEDS ORDERED: nitroGLYCERIN-Tridil 50MG/D5W 250 ML IV ONE (11:39)
[2020-05-15] MEDS ORDERED: heparin 1,000unit/ml 10ml vial 10 ML ONE (11:39)
[2020-05-15 13:26] LABS: ISTAT HGB ART 9.2 g/dl (12.0-16.0); ISTAT Hct ART 27 %PCV (35-48); ISTAT O2 SATURATION ARTERIAL 93 % (95-98); ISTAT SOURCE ART
--- NOTE | 2020-05-15 17:12 | NUR ---
Report given to EVER Robertson. Right groin site CDI. Right wrist site CDI, no s/s hematoma.
== END 2020-05-15 20:00 | disposition home or self-care (01) ==
LOC: SSTAY O 10:07
PROVIDERS: ATTEND Internal Medicine Cardiovascular Disease
DX: R06.02 Shortness of breath (principal); I44.7 Left bundle-branch block, unspecified; I35.0 Nonrheumatic aortic (valve) stenosis; I11.0 Hypertensive heart disease with heart failure; I50.30 Unspecified diastolic (congestive) heart failure; J45.909 Unspecified asthma, uncomplicated; M47.899 Other spondylosis, site unspecified; H40.9 Unspecified glaucoma; D64.9 Anemia, unspecified; E78.5 Hyperlipidemia, unspecified; M81.0 Age-related osteoporosis without current pathological fracture; G40.909 Epilepsy, unspecified, not intractable, without status epilepticus; E66.3 Overweight; Z68.29 Body mass index [BMI] 29.0-29.9, adult; Z86.73 Personal history of transient ischemic attack (TIA), and cerebral infarction without residual deficits; Z79.899 Other long term (current) drug therapy; Z90.710 Acquired absence of both cervix and uterus; Z98.890 Other specified postprocedural states; Z88.8 Allergy status to other drugs, medicaments and biological substances
CPT/HCPCS: 36415; 80048; 82803; 85014; 85025; 85610; 85730; 93005; 93460; 93567; 99152; 99153; C1769; C1894; J1644; J2001; J3010; Q0163; Q9967; A4620; A5120; J3490

== ENCOUNTER 2020-05-21 23:18 | Emergency (ER) | payer MEDICARE, OTHER, MEDICAID ==
[~2020-05-21] VITALS: Ht 157.5 cm; Wt 72.7 kg
[~2020-05-21 23:18] MED LIST changes: +ALB0.5UD IH; -CEFD300C3 PO; +HYDR-3972 PO; +POTA10TA36 PO
--- NOTE | 2020-05-22 00:10 | NUR ---
Pt. states all symptoms have resolved.
[2020-05-22 00:15] LABS: BASOPHILS # (AUTO) 0.1 X10'3 (0-0.2); BASOPHILS % (AUTO) 0.6 % (0-1); EOSINOPHILS # (AUTO) 0.2 X10'3 (0-0.9); EOSINOPHILS % (AUTO) 2.5 % (0-6); HEMATOCRIT 26.8 % (35.0-45.0); HEMOGLOBIN 8.9 g/dl (12.0-16.0); LYMPHOCYTES # (AUTO) 1.1 X10'3 (1.1-4.8); LYMPHOCYTES % (AUTO) 12.1 % (21-51); MEAN CORPUSCULAR HEMOGLOBIN 29.6 PG (27.0-31.0); MEAN CORPUSCULAR HGB CONC 33.2 g/dL (33.0-36.5); MEAN CORPUSCULAR VOLUME 89.1 FL (78-98); MEAN PLATELET VOLUME 9.4 FL (7.4-10.4); MONOCYTES # (AUTO) 0.7 X10'3 (0-0.9); MONOCYTES % (AUTO) 7.4 % (2-12); NEUTROPHILS # (AUTO) 6.9 X10'3 (1.8-7.7); NEUTROPHILS % (AUTO) 77.4 % (42-75); PLATELET COUNT 249 X10'3 (140-440); RED CELL DISTRIBUTION WIDTH 15.2 % (11.5-14.5); WHITE BLOOD COUNT 8.9 X10'3 (4.5-11.0)
--- NOTE | 2020-05-22 00:20 | NUR ---
Per Pt. due not call "Ashkan". Pt. would like us to contact her son Bertram if needed and states we can talk to her son about her medical care as he is her POA.
[2020-05-22 00:29] LABS: ALANINE AMINOTRANSFERASE 19 U/L (12-78); ALBUMIN 3.4 G/DL (3.4-5.0); ALBUMIN/GLOBULIN RATIO 0.9 (1.1-1.5); ALKALINE PHOSPHATASE 78 IU/L (46-116); ANION GAP 9 (8-16); ASPARTATE AMINO TRANSFERASE 17 U/L (10-37); BILIRUBIN,TOTAL 0.3 MG/DL (0.1-1.0); BLOOD UREA NITROGEN 38 MG/DL (7-18); BUN/CREATININE RATIO 20.7 (6.6-38.0); CALCIUM 9.1 MG/DL (8.5-10.1); CHLORIDE 100 MMOL/L (99-107); CREATININE 1.84 MG/DL (0.40-0.90); GLUCOSE 113 MG/DL (70-104); POTASSIUM 4.2 MMOL/L (3.5-5.1); SODIUM 137 MMOL/L (135-145); TOTAL CARBON DIOXIDE 28.4 MMOL/L (24-32); TOTAL PROTEIN 7.2 G/DL (6.4-8.2); eGFR 26 ML/MIN
--- NOTE | 2020-05-22 00:29 | NUR ---
pt ambualted to bathroom without assistance with no issue. pt returned self to room and placed back on monitors.
[2020-05-22 00:37] LABS: TROPONIN I < 0.04 NG/ML (0.0-0.05)
--- NOTE | 2020-05-22 01:13 | NUR ---
PT SON PAO WAS CALLED FOR TRANSPORTATION HOME . HE WILL BE HERE TO PICK HIS MOTHER UP FOR DISCHARGE . [place] [address] . HE WILL BE HERE SOON HE CAN !
--- NOTE | 2020-05-22 01:57 | NUR ---
PT ASKED FOR SOME FOOD OFFER PT [employer] REQUESTED
[2020-05-22 03:31] VITALS: BP 186/64
== END 2020-05-22 03:02 | disposition home or self-care (01) ==
LOC: ER 23:19
DX: R06.02 Shortness of breath (principal); R05 Cough; E78.00 Pure hypercholesterolemia, unspecified; I10 Essential (primary) hypertension; J45.909 Unspecified asthma, uncomplicated; M19.90 Unspecified osteoarthritis, unspecified site; Z86.73 Personal history of transient ischemic attack (TIA), and cerebral infarction without residual deficits; Z90.710 Acquired absence of both cervix and uterus; Z88.5 Allergy status to narcotic agent; Z88.8 Allergy status to other drugs, medicaments and biological substances; Z79.899 Other long term (current) drug therapy
CPT/HCPCS: 36415; 71045; 80053; 83880; 84484; 85025; 93005; 99285